=== PATIENT | male | born 1950 | race Caucasian/White ===

== ENCOUNTER → 2021-02-24 10:24 | Outpatient (POV) | payer MEDICARE, SELFPAY | PROVIDERS: Visit Provider Dermatology | DX: Z00.00 Encounter for general adult medical examination without abnormal findings (principal) ==

== ENCOUNTER 2024-12-10 18:56 | Emergency (ER) | payer MEDICARE, SELFPAY ==
--- NOTE | 2024-12-10 18:54 | PC.NURSE ---
contacted dispatch for net software engineer.
--- NOTE | 2024-12-10 18:54 | PC.NURSE ---
184- PT ARRIVED BY [facility] 1845- PADS ON PT, IO IN LEFT DUNAWAY 1847- PULSE CHECK ASYSTOLE 1848- EPI IN 1850- PULSE CHECK ASYSTOLE 1850- TOD CALLED BY Lulu HAMPTON MD
[2024-12-10 18:59] VITALS: BMI 25.8
[2024-12-10] MEDS: EPINEPHrine 0.1 MG/ML 10ML SYRINGE (CRASH CART) 1 MG IV (19:00)
--- NOTE | 2024-12-10 19:05 | PC.NURSE ---
Gretchen at [facility] contacted. WE have to wait until family is notified, medical hx obtained and security threat analyst clear case to finish case wit [facility]. Call back to update about information, night nurse Maria Eugenia and charge Maria L south
--- NOTE | 2024-12-10 19:29 | HMH.EDGENADL ---
Discharge Plan Clinical Impressions Clinical Impression: Cardiac arrest, Hematemesis, Acute respiratory failure Print Language Print Language: Macedonian Discharge ED Provider: Sindi Carrasco General Adult HPI General Stated complaint: code blue Time Seen by Provider: 12/10/24 18:57 History of Present Illness HPI narrative: This patient is a 74-year-old male with a history of COPD presenting to the emergency department as a CODE BLUE. According to [facility], they were called to the patient's home because of possible vomiting blood. Fire arrived on scene at first and found patient on the ground pulseless. They initiated CPR around 1740. They had prolonged transit time here with asystole noted on all pulse checks. He was given epinephrine through IO in the left tibia, was given bag valve ventilation breaths through supraglottic airway after failed intubation attempts. They noted a lot of blood coming from his mouth/nose. Patient's family arrives later and notes that the patient went to [place] today for a shot for his COPD. His son states that he is been sick with COPD for a long time and was trying a new shot today to see if that would help. He started vomiting blood after they got home, and shortly after that passed out. First responders got there and noted he did not have a pulse and started CPR. Related Data Allergies Allergy/AdvReac Type Severity Reaction Status Date / Time From [facility] Allergy Intermediate I-RASH Uncoded 10/04/17 15:32 [facility] Disclaimer: The information contained in this section may have been updated after the patient was seen, as this information can be updated by other users. Social History Smoking Status: Former smoker alcohol intake: never current occupational status: retired Travel in the last 8 weeks: None ROS Obtained: Yes unobtainable due to mental status Physical Exam General General appearance: in distress Head Head exam: atraumatic and normocephalic Eye Eye exam: Present other (Pupils fixed and dilated, nonreactive) ENT ENT exam: Present other (Blood coming from the nose and oropharynx. Breaths being given through supraglottic airway) Neck Neck exam: Present normal inspection Chest Chest inspection: Present other (Thor device in place administering chest compressions) Respiratory Respiratory exam: Present other (Breath sounds heard with bag ventilation through supraglottic airway. No spontaneous respiration) Cardiovascular Cardiovascular exam: Present other (Asystole, no pulses) Abdominal Exam Abdominal exam: Present soft; Absent distention Extremities Exam Extremities exam: Present normal inspection and other (IO L lower leg) Neurological Exam Neurological exam: Present other (Pupils fixed and dilated, absent reflexes, GCS 3); Absent alert Skin Skin exam: Present other (Cool, pale, mottled) Medical Decision Making Medical Records Screening: Per USPSTF and CDC recommendations, given the prevalence of disease in our region, it is our hospital?s policy to screen for HIV and viral Hepatitis for all patients aged 18 and over and those with ongoing risk factors. Cem Inquiry Pt receiving controlled substance: No Orders (Tests/Meds): ED MEDICATIONS Discontinued Medications Generic Name Dose Route Start Last Admin Trade Name Nadira PRN Reason Stop Dose Admin Epinephrine HCl 1 mg 12/10/24 18:40 12/10/24 19:00 Epinephrine 0.1 Mg/Ml 10ml Syringe (Crash Cart) IV 12/10/24 18:41 1 mg ONCE ONE Administration Medical Decision Narrative: In summary, this patient is a 74-year-old male presenting to the Emergency Department for evaluation of cardiac arrest. Differential diagnoses considered include but are not limited to [place], ventricular dysrhythmia, hemorrhagic shock from GI bleed in the setting of hematemesis, respiratory failure, aspiration, hypoglycemia, hyperkalemia. Ruling out the most morbid conditions drove assessment. Patient arrives as a CODE BLUE. He had been down for over an hour upon arrival with asystole noted on the monitor on each pulse check. No changes in end-tidal. He was ventilated through a supraglottic airway, as there was difficulty intubated the patient secondary to blood in his oropharynx and nose. Family reported he had been vomiting blood prior to going down. ACLS was continued here with epinephrine administered protocols. Asystole on pulse checks here with no return of spontaneous circulation. Given prolonged downtime with no residual signs of life, I feel the patient is unlikely to have meaningful neurologic recovery. Decision was made to call time of at 1851. Family was present and notified. Glass Cutting Machine Operator also present and notified. Critical Care Critical Care Time Critical Care Time: No
--- NOTE | 2024-12-10 19:42 | EXP.DEATH.NO ---
Pronouncement Note Date and Time of Date of : 12/10/24 Time of : 18:51 PCOD Preliminary cause of : Cardiac arrest Additional Data Confirmation of : no pulse, no respirations, no heart sounds and pupils fixed and dilated Family: at bedside Additional persons at bedside: other (patient advocate, dynamicist) Attending/PCP notified?: No Was code activated?: Yes Autopsy should be considered if:: Unknown or unanticipated medical complications Cause is not known with certainty on clinical grounds Would allay concerns of the public/family regarding Unexplained/unexpected apparently natural and not subject to a forensic medical jurisdiction DOA Within 24 hours of admission Sustained or apparently sustained injury while in the hospital Result of high risk, infectious and contagious disease Obstetric and pediatric arising from environmental or occupational hazard Unexplained/unexpected from dental, medical, or surgical diagnostic procedures and/or therapies Would disclose a known or suspected illness which also may have a bearing on survivors or recipients of transplanted organs Autopsy requested?: No Does not meet criteria soft work wrapper layer and examiner notified?: Yes Organ bank notified?: Yes Advance directives: No
--- NOTE | 2024-12-10 19:55 | PC.NURSE ---
Spoke with MARINA w/ [facility]. Informed MARINA that home was en route and family was staying until home arrived. Ref # [id number]
--- NOTE | 2024-12-10 20:00 | PC.NURSE ---
[facility] called back. Per [place] pt is not being followed and is able to be released to home. 1953
[2024-12-10 20:38] VITALS: BP 000/00; PULSE 0; RESP 0; TEMP -17.7; TEMP 0; O2SAT 0
== END 2024-12-10 20:41 | disposition expired ==
PROVIDERS: Emergency Provider Emergency Medicine
DX: I46.9 Cardiac arrest, cause unspecified (principal); J96.00 Acute respiratory failure, unspecified whether with hypoxia or hypercapnia; K92.0 Hematemesis
CPT/HCPCS: 92950; 96374; 99291; J0171